=== PATIENT | female | born 1945 | race Caucasian/White ===

== ENCOUNTER → 2016-11-20 10:05 | Outpatient (CLI) | payer BC ==
[2016-04-01 13:00] VITALS: BMI 32.5
[~2016-11-20 10:05] MED LIST: AVAPRO150 MG PO; BAYER CHEWABLE81 MG PO; BIAXIN250 MG; COREG 3.1253.125 MG PO; COREG6.25 MG PO; COUMADIN5 MG PO; FERROUS SULFAT325 MG PO; ISOSORBIDE DINI30 MG OR; LASIX20 MG PO; LEVAQUIN500 MG PO; MULTI-DAY VITAM1 TAB PO; PRAVACHOL20 MG PO; PRAVACHOL40 MG PO; PRAVASTATIN SOD10 MG PO; PROTONIX40 MG PO; ULTRAM50 MG PO; UNITHROID88 MCG PO; XARELTO15 MG PO
[2016-11-20 10:42] LABS: BASOPHILS 0.4 % (0-2); EOSINOPHILS 2.1 % (0-7); HEMATOCRIT 39.2 % (36.0-48.0); HEMOGLOBIN 12.7 g/dL (12-16); IMMATURE GRANULOCYTES 0.2 % (0-5); LYMPHOCYTES 33.8 % (15-50); MCH 31.2 pg (26.0-34.0); MCHC 32.4 g/dL (31.0-37.0); MCV 96.3 fL (80.0-100.0); MEAN PLATELET VOLUME 11.1 fL (7.4-10.4); MONOCYTES 17.4 % (2-11); NEUTROPHILS 46.1 % (40-80); PLATELET COUNT 187 10x3/uL (130-400); RBC 4.07 10x6/uL (4.00-5.40); RDW 12.8 % (11.5-14.5); WBC 5.2 10x3/uL (4.8-10.8)
[2016-11-20 11:11] LABS: ALBUMIN 3.6 g/dL (3.4-5.0); BILIRUBIN - DIRECT 0.13 mg/dL (0.00-0.30); BILIRUBIN - INDIRECT 0.63 mg/dL (0.00-1.00); BILIRUBIN - TOTAL 0.76 mg/dL (0.2-1.3); PROTEIN - SERUM 7.4 g/dL (6.4-8.2)
== END | disposition home or self-care (01) ==
LOC: D.LAB 10:05
PROVIDERS: Surgery
DX: Z85.038 Personal history of other malignant neoplasm of large intestine (principal)

== ENCOUNTER → 2017-02-26 09:56 | Outpatient (CLI) | payer BC ==
[2016-04-01 13:00] VITALS: BMI 32.5
[2017-02-26 10:29] LABS: BASOPHILS 0.2 % (0-2); HEMATOCRIT 38.5 % (36.0-48.0); HEMOGLOBIN 12.7 g/dL (12-16); LYMPHOCYTES 36.9 % (15-50); MCH 32.1 pg (26.0-34.0); MCV 97.2 fL (80.0-100.0); MEAN PLATELET VOLUME 11.2 fL (7.4-10.4); NEUTROPHILS 45.9 % (40-80); PLATELET COUNT 173 10x3/uL (130-400); RBC 3.96 10x6/uL (4.00-5.40); RDW 11.9 % (11.5-14.5); WBC 4.9 10x3/uL (4.8-10.8)
[2017-02-26 10:48] LABS: ALBUMIN 3.6 g/dL (3.4-5.0); BILIRUBIN - TOTAL 0.39 mg/dL (0.2-1.3); CALCIUM 9.2 mg/dL (8.5-10.1); CARBON DIOXIDE 29.3 mmol/L (21.0-32.0); CREATININE - SERUM 1.2 mg/dL (0.6-1.3); POTASSIUM - SERUM 4.3 mmol/L (3.5-5.1); PROTEIN - SERUM 7.4 g/dL (6.4-8.2)
== END | disposition home or self-care (01) ==
LOC: D.LAB 09:56
PROVIDERS: Surgery
DX: Z85.038 Personal history of other malignant neoplasm of large intestine (principal)

== ENCOUNTER → 2017-06-18 08:53 | Outpatient (CLI) | payer BC ==
[2016-04-01 13:00] VITALS: BMI 32.5
[2017-06-18 10:10] LABS: ALBUMIN 3.6 g/dL (3.4-5.0); ANION GAP 14.8 mmol/L (8-16); BILIRUBIN - TOTAL 0.44 mg/dL (0.2-1.3); CARBON DIOXIDE 26.3 mmol/L (21.0-32.0); CREATININE - SERUM 2.1 mg/dL (0.6-1.3); POTASSIUM - SERUM 5.1 mmol/L (3.5-5.1); PROTEIN - SERUM 7.5 g/dL (6.4-8.2)
[2017-06-18 10:29] LABS: BASOPHILS 0 % (0-2); EOSINOPHILS 2.6 % (0-7); HEMATOCRIT 38.3 % (36.0-48.0); HEMOGLOBIN 12.4 g/dL (12-16); IMMATURE GRANULOCYTES 0.3 % (0-5); LYMPHOCYTES 26.5 % (15-50); MCH 31.6 pg (26.0-34.0); MCHC 32.4 g/dL (31.0-37.0); MCV 97.7 fL (80.0-100.0); MEAN PLATELET VOLUME 11.6 fL (7.4-10.4); MONOCYTES 22.1 % (2-11); NEUTROPHILS 48.5 % (40-80); RBC 3.92 10x6/uL (4.00-5.40); RDW 13.2 % (11.5-14.5); WBC 3.4 10x3/uL (4.8-10.8)
[2017-06-18 10:30] LABS: PLATELET COUNT 136 10x3/uL (130-400)
== END | disposition home or self-care (01) ==
LOC: D.CT 06-09 09:30 → D.LAB 06-09 10:00 → D.CT 08:53
PROVIDERS: Surgery
DX: Z85.038 Personal history of other malignant neoplasm of large intestine (principal)

== ENCOUNTER 2017-10-08 11:42 | Outpatient (CLI) | payer BC ==
[~2017-10-08] VITALS: Ht 144.8 cm; Wt 67.3 kg
--- NOTE | ~2017-10-08 | HEMODYNAMI ---
PATIENT:YASSINE العلي MEDICAL RECORD: [id number] : 47 LOCATION:[facility] ADMISSION DATE: 10/08/17 Generatedon:10/08/201715:21 Patient name: YASSINE العلي Patient #: [id number] SSN: DO B: 1945 Date of study: 10/08/2017 Page: Of Hemodynamic Procedure Report Patient Data Patient Demographics Procedure consent was obtained First Name: YASSINE Gender: Female Last Name: SEVERIANO : 1945 [facility] Initial: A Age: 72 year(s) Patient #: [id number] Race: Unknown Additional ID: [id number] Contact details Address: [address] [place] [address] State: [place] City: [place] Zip code: [address] Past Medical History Allergies Allergen Reaction Date Comments Reported Other allergy 04/01/2016 codeine,ibuprofen Admission Admission Data Admission Date: 10/08/2017 Admission Time: 11:42 Procedure Procedure Types Cath Procedure Diagnostic Procedure LHC LHC w/Coronaries w/Grafts Sedation Charges Moderate Sedation up to 30 minutes Peripheral Cath Diagnostic Procedure Cath Peripheral Aqpqy-Fdbbzld-Ujs-Off Procedure Description Procedure Date Procedure Date: 10/08/2017 Procedure Start Time: 14:52 Procedure End Time: 15:20 Procedure Staff Name Function Rishi Howard MD Performing Physician Lashon Gilbert RT Monitor Joe Yousif RN Nurse Robles Cordoba RT Scrub Procedure Data Cath Procedure Fluoroscopy Diagnostic fluoroscopy Total fluoroscopy Time: 7.3 time: 7.3 min min Diagnostic fluoroscopy Total fluoroscopy dose: 698 dose: 698 mGy mGy Contrast Material Contrast Material Type Amount (ml) Isovue 300 163 Entry Location Entry Primary Successful Side Size Upsize Upsize Entry Closure Succes sful Closure Location (Fr) 1 (Fr) 2 (Fr) Remarks Device Remarks Femoral Right 5 Fr Exoseal artery Estimated blood loss: 5 ml Diagnostic catheters Device Type Used For End Catheter Placement MULTIPACK JL 4.0 5Fr Left Coronary catheter Angiography MULTIPACK 3DRC 5Fr Right Coronary catheter Angiography DIAGNOSTIC AR MOD 5Fr Multi-vessel Catheter ([id number]) Angiography DIAGNOSTIC IMT 5Fr Multi-vessel Catheter ([id number]) Angiography MULTIPACK Pigtail 5 Fr LV Angiography catheter Procedure Complications No complications Procedure Medications Medication Administration Route Dosage Oxygen NC 2 l/min Lidocaine 2% added to field 20 Heparin Flush Bag added to field 2 bags (1000units/500ml NS) 0.9% NaCl I.V. 100 ml/hr Versed I.V. 1 mg Fentanyl I.V. 50 mcg Versed I.V. 1 mg Fentanyl I.V. 50 mcg Versed I.V. 1 mg Fentanyl I.V. 50 mcg Versed I.V. 1 mg Fentanyl I.V. 50 mcg Hemodynamics Rest Heart Rate: 74 (bpm) Pressure Samples Time Site Value (mmHg) Purpose Heart Use Rate(bpm) 15:12 LV 148/8,17 Snapshot 84 15:13 AO 155/66(105) Pullback 82 15:13 LV 158/8,25 Pullback 82 Gradients Valve Time Site 1 Site 2 Mean SEP/DFP Peak To Heart Use (mmHg) (sec/min) Peak Rate (mmHg) (bpm) Aortic 15:13 LV AO 7 18 3 82 158/8,25 155/66(105) Calculations Valve P-P Mean Valve Index Valve Source Name Gradient Area Flow (cm2) Aortic 3 7 3 7 Snapshots Pre Cath Intra NCS Post Cath Vital Signs Time Heart Resp SPO2 etCO2 NIBP (mmHg) Rhythm Pain Sedation Rate (ipm) (%) (mmHg) Status Level (bpm) 14:40:09 85 30 97 0 184/103(140) NSR 0 (11) 10(A) , No pain 14:44:27 79 29 96 22.4 148/78(104) NSR 0 (11) 10(A) , No pain 14:48:47 75 15 94 0 138/68(100) NSR 0 (11) 10(A) , No pain 14:53:09 76 24 97 0 147/70(109) NSR 0 (11) 9(A) , No pain 14:57:33 83 15 98 0 143/68(112) NSR 0 (11) 9(A) , No pain 15:01:55 78 16 94 0 133/60(102) NSR 0 (11) 9(A) , No pain 15:06:11 75 15 97 0 131/64(99) NSR 0 (11) 9(A) , No pain 15:10:21 77 12 98 8.9 135/65(105) NSR 0 (11) 9(A) , No pain 15:14:27 77 14 100 10.4 134/69(103) NSR 0 (11) 9(A) , No pain 15:19:18 81 13 100 26.1 148/68(103) NSR 0 (11) 10(A) , No pain Medications Time Medication Route Dose Verified Delivered Reason Notes Effe ctiveness by by 14:46:48 Oxygen NC 2 Rishi Buffie used for l/min Lee Yousif RN procedure 14:46:56 Lidocaine 2% added 20ml Rishi Rishi for local to vial Lee Howard MD anesthetic field 14:47:01 Heparin Flush added 2 Rishi Rishi used for Bag to bags Lee Howard MD procedure (1000units/500ml field NS) 14:47:10 0.9% NaCl I.V. 100 Rishi Buffie Per ml/hr Lee Yousif RN physician 14:47:16 Versed I.V. 1 mg Rishi Buffie for Lee Yousif RN sedation 14:47:21 Fentanyl I.V. 50 Rishi Buffie for mcg Lee Yousif RN sedation 14:53:30 Versed I.V. 1 mg Rishi Buffie for Lee Yousif RN sedation 14:53:34 Fentanyl I.V. 50 Rishi Buffie for delia Yousif RN sedation 15:00:28 Versed I.V. 1 mg Rishi Buffie for Lee Yousif RN sedation 15:00:32 Fentanyl I.V. 50 Rishi Buffie for mcg Lee Yousif RN sedation 15:13:41 Versed I.V. 1 mg Rishi Buffie for Lee Yousif RN sedation 15:13:45 Fentanyl I.V. 50 Rishi Buffie for mcg Lee Yousif RN sedation Procedure Log Time Note 13:50:39 Robles Cordoba RT(R) sent for patient. Start room use. 14:22:40 Time tracking: Regular hours (M-F 7:00 - 5:00) 14:22:44 Plan of Care:Hemodynamics will remain stable., Cardiac rhythm will remain stable., Comfort level will be maintained., Respiratory function will remain adequate., Patient/ family verbilizes understanding of procedure., Procedure tolerated without complication., Recovers from procedure without complications.. 14:32:19 Patient received from Pre/Post Procedure Room to CCL 2 Alert and oriented. Tansferred to table in Supine position. 14:32:20 Warm blankets applied, and vicky hugger turned on for patient comfort. 14:32:20 Correct patient and procedure confirmed by team. 14:32:21 Signed procedure consent form obtained from patient. 14:32:22 ECG and BP/O2 sat monitors applied to patient. 14:39:00 Vital chart was started 14:41:45 Baseline sample Acquired. 14:41:50 Rhythm: sinus rhythm 14:41:51 Full Disclosure recording started 14:41:55 H&P Date Dictated: 10/08/2017 Within 30 days and on chart., H&P Addendum completed by physician on day of procedure. (MUST COMPLETE FOR ALL OUTPATIENTS). 14:41:57 Pre-procedure instructions explained to patient. 14:41:57 Pre-op teaching completed and patient verbalized understanding. 14:41:59 Family in waiting room. 14:42:00 Patient NPO since Midnight. 14:42:02 Is the patient allergic to Iodine/contrast media? No. 14:42:03 Was the patient premedicated? No 14:42:05 Is patient on blood thinner?Yes 14:42:30 patient states she discontinued Coumadin 10/03/17 14:42:35 Patient diabetic? No. 14:42:37 Previous problem with sedation/anesthesia? No ? 14:42:39 Snore? Yes 14:42:40 Sleep apnea? No 14:42:40 Deviated septum? No 14:42:41 Opens mouth fully? Yes 14:42:42 Sticks out tongue? Yes 14:42:44 Airway obstruction? No ? 14:42:48 Dentures? Yes out 14:42:51 Pre procedure: right dorsailis pedis pulse 2+ Normal; easily identifiable; not easily obliterated 14:42:58 Pre procedure: left dorsailis pedis pulse 2+ Normal; easily identifiable; not easily obliterated 14:43:01 Patient pain scale 0/10 ?. 14:43:15 IV patent on arrival in left forearm with 0.9% NaCl at KVO. 14:43:18 Lab results completed and on chart. 14:43:20 Alarms reviewed by R. N. 14:43:21 Sharps counted by scrub and verified by R.N. 14:43:26 Bilateral groins area was prepped with chlora-prep and draped in sterile fashion 14:: Physician arrived :: --------ALL STOP TIME OUT------ : Final Timeout: patient, procedure, and site verified with staff and physician. All members of the team are in agreement. 14:43:30 Bilateral groins site verified by team. 14:43:33 Physical assessment completed. ASA score P 2 - A patient with mild systemic disease as per Rishi Howard MD. 14:43:37 Sedation plan: IV Moderate Sedation Medication:Versed, Fentanyl 14:46:48 Oxygen 2 l/min NC was administered by Joe Yousif RN; used for procedure; 14:46:56 Lidocaine 2% 20ml vial added to field was administered by Rishi Howard MD; for local anesthetic; 14:47:01 Heparin Flush Bag (1000units/500ml NS) 2 bags added to field was administered by Rishi Howard MD; used for procedure; 14:47:10 0.9% NaCl 100 ml/hr I.V. was administered by Joe Yousif RN; Per physician; 14:47:16 Versed 1 mg I.V. was administered by Joe Yousif RN; for sedation; 14:47:21 Fentanyl 50 mcg I.V. was administered by Joe Yousif RN; for sedation; 14:51:53 Procedure started. 14:52:11 Local anesthetic to right femoral artery with Lidocaine 2% by Rishi Howard MD.INITIAL ACCESS ONLY 14:52:26 Use device set Femoral Dx 14:52:27 ACIST Syringe (62555) opened to sterile field. 14:52:28 Bag Decanter (2002) opened to sterile field. 14:52:28 Medline Cath Pack ([id number]) opened to sterile field. 14:52:29 DIAGNOSTIC WIRE .035 260cm J wire (044211) opened to sterile field. 14:52:30 ACIST Hand Control (43588) opened to sterile field. 14:52:31 ACIST Manifold (91362) opened to sterile field. 14:52:31 DIAGNOSTIC Multipack 5Fr catheter set ([id number]) opened to sterile field. 14:52:32 Tegaderm 4 x 4 (1626W) opened to sterile field. 14:52:33 SHEATH Prelude 5Fr 0.035 (KXK-3A-88-035) opened to sterile field. 14:53:28 Zero performed for pressure channel P1 14:53:30 Versed 1 mg I.V. was administered by Joe Yousif RN; for sedation; 14:53:34 Fentanyl 50 mcg I.V. was administered by Joe Yousif RN; for sedation; 14:53:34 Zero performed for pressure channel P1 14:53:41 Zero performed for pressure channel P1 14:53:48 Zero performed for pressure channel P1 14:54:02 Zero performed for pressure channel P1 14:54:08 Zero performed for pressure channel P1 14:54:17 Zero performed for pressure channel P1 14:54:26 Zero performed for pressure channel P1 14:54:57 Zero performed for pressure channel P1 14:55:04 Zero performed for pressure channel P1 14:55:32 A 5 Fr sheath was inserted into the Right Femoral artery 14:55:41 A MULTIPACK JL 4.0 5Fr catheter was advanced over the wire and used for Left Coronary Angiography. 14:55:44 LCA angiography performed. 14:55:47 Injector settings: Ml/sec: 3, Volume: 6, 14:56:56 Catheter removed. 14:57:02 A MULTIPACK 3DRC 5Fr catheter was advanced over the wire and used for Right Coronary Angiography. 14:58:05 RCA angiography performed. 14:58:08 Injector settings: Ml/sec: 3, Volume: 6, 14:58:31 Catheter removed. 15:00:10 A DIAGNOSTIC AR MOD 5Fr Catheter (744800P) was advanced over the wire and used for Multi-vessel Angiography. 15:00:17 SVG to RCA angiography performed. 15:00:28 Versed 1 mg I.V. was administered by Joe Yousif RN; for sedation; 15:00:29 SVG to Circ angiography performed. 15:00:32 Fentanyl 50 mcg I.V. was administered by Joe Yousif RN; for sedation; 15:02:52 Catheter removed. 15:03:04 A DIAGNOSTIC IMT 5Fr Catheter ([id number]) was advanced over the wire and used for Multi-vessel Angiography. 15:04:09 BOSS angiography performed. 15:04:13 Injector settings: Ml/sec: 3, Volume: 6, 15:04:49 GLIDE WIRE ANGLE 260cm ([id number]) opened to sterile field. 15:09:40 TORQUE DEVICE PLASTIC .038 ( TD01) opened to sterile field. 15:11:44 Catheter removed. 15:11:49 A MULTIPACK Pigtail 5 Fr catheter was advanced over the wire and used for LV Angiography. 15:12:09 LV hemodynamics recorded. 15:12:11 LV gram done using BUSBY 15:12:13 Injector settings: Ml/sec: 5, Volume: 15, 15:12:53 EF : 35 % 15:13:21 Abdominal angiogram w/ runoff was performed. 15:13:41 Versed 1 mg I.V. was administered by Joe Yousif RN; for sedation; 15:13:45 Fentanyl 50 mcg I.V. was administered by Joe Yousif RN; for sedation; 15:16:03 EXOSEAL 5Fr (EX500) opened to sterile field. 15:16:23 Catheter removed. 15:17:13 Sheath removed intact; hemostasis achieved with Exoseal to the Right Femoral artery. 15:17:27 Procedure ended.(Physican Out) 15:18:15 Fluoroscopy time 07.30 minutes. 15:18:20 Flurop Dose total: 698 15:18:20 Fluoroscopy dose: 698 mGy 15:18:34 Contrast amount:Isovue 300 163ml. 15:18:36 Sharps counted by scrub and verified by R.N. 15:18:43 Insertion/operative site no bleeding no hematoma. 15:18:46 Post-op/insertion site Right Femoral artery dressed using a 4 x 4 and Tegaderm. 15:18:49 Post right femoral artery:stable 15:18:51 Post Procedure Pulses reassessed and unchanged 15:18:53 Post procedure rhythm: unchanged. 15:18:56 Estimated blood loss: 5 ml 15:18:59 Post procedure instruction explained to patient.Patient verbalizes understanding. 15:18:59 Patient needs reinforcement of post procedure teaching. 15:19:30 Procedure type changed to Cath procedure, Diagnostic procedure, LHC, LHC w/Coronaries w/Grafts, Sedation Charges, Moderate Sedation up to 30 minutes, Peripheral Cath Diagnostic Procedure, Cath Peripheral, Djgsu-Tqibrfb-Exn-Off 15:19:31 Procedure and supply charges have been captured, reviewed, submitted and are correct. 15:19:36 Procedure Complication : No complications 15:19:38 Vital chart was stopped 15:19:39 See physician's report for complete and final results. 15:20:04 Report given to Pre/Post Procedure Room. 15:20:07 Patient transfered to Pre/Post Procedure Room with Stretcher. 15:20:09 Procedure ended. 15:20:09 Full Disclosure recording stopped 15:20:13 End room use (Document Last) Device Usage Item Name Manufacture Quantity Catalog Number Hospital Part Current M inimal Lot# / Charge Number Stock Stock Serial# Code ACIST Syringe Acist 1 34508 339895 812043 809655 2 0 (50767) [employer] Bag Decanter Microtek 1 2001S 063331 55422 358509 5 () Medical Inc. Medline Cath Cardinal 1 [id number] 289908 84697 840452 5 Pack Health ([id number]) DIAGNOSTIC WIRE [facility] [place] 1 750371 302419 992197 476074 3 0 .035 260cm J wire (609872) ACIST Hand Acist 1 68217 430744 613202 307618 5 Control (10859) [employer] ACIST Manifold Acist 1 95893 017815 009641 554869 5 (40187) [employer] DIAGNOSTIC Cardinal 1 [id number] 150819 63077 462818 3 0 Multipack 5Fr Health catheter set (MH1987) Tegaderm 4 x 4 3M 1 1626W 662180 177830 655504 5 (1626W) SHEATH Prelude Merit 1 [id number]-2I-83-035 489636 180300 298217 5 5Fr 0.035 Medical (BLM-7T-14-035) MULTIPACK JL Cardinal 1 106276 5 4.0 5Fr Health catheter MULTIPACK 3DRC Cardinal 1 989306 5 5Fr catheter Health DIAGNOSTIC AR Cardinal 1 [id number] 336417 546287 330323 1 5 MOD 5Fr Health Catheter (908014F) DIAGNOSTIC IMT [place] 1 [id number] 163620 298541 19495 5 5Fr Catheter Scientific ([id number]) GLIDE WIRE Terumo 1 [id number] 554386 295617 647881 5 ANGLE 260cm (FQ6234) TORQUE DEVICE [place] 1 TD01 722814 133603 956275 5 PLASTIC .038 ( Scientific TD01) MULTIPACK Cardinal 1 859219 5 Pigtail 5 Fr Health catheter EXOSEAL 5Fr Cardinal 1 EX500 189655 182250 993130 1 0 (EX500) Health Signature Audit [place] Stage Time Signature Unsigned Intra-Procedure 10/08/2017 Lashon Gilbert 3:21:29 PM RT(R) Signatures Monitor : Lashon Gilbert RT Signature : Date : Time : [facility] [address] [place] [address]
[2017-10-08 12:09] VITALS: BP 91/67; Ht 144.8 cm; Wt 67.3 kg
[2017-10-08 12:24] LABS: ANION GAP 11.8 mmol/L (8-16); CALCIUM 9.7 mg/dL (8.5-10.1); CARBON DIOXIDE 30.2 mmol/L (21.0-32.0); CREATININE - SERUM 1.2 mg/dL (0.6-1.3)
[2017-10-08 12:29] LABS: BASOPHILS 0.3 % (0-2); EOSINOPHILS 1.4 % (0-7); HEMATOCRIT 40.7 % (36.0-48.0); HEMOGLOBIN 13.3 g/dL (12-16); IMMATURE GRANULOCYTES 0.2 % (0-5); LYMPHOCYTES 40.2 % (15-50); MCH 31.7 pg (26.0-34.0); MCHC 32.7 g/dL (31.0-37.0); MCV 97.1 fL (80.0-100.0); MEAN PLATELET VOLUME 11.3 fL (7.4-10.4); MONOCYTES 14.9 % (2-11); PLATELET COUNT 180 10x3/uL (130-400); RBC 4.19 10x6/uL (4.00-5.40); RDW 12.1 % (11.5-14.5); WBC 5.8 10x3/uL (4.8-10.8)
[2017-10-08 12:57] LABS: INR 0.98 (0.85-1.17); PROTIME 12.6 SECONDS (11.6-15.0)
== END 2017-10-08 18:05 | disposition home or self-care (01) ==
LOC: D.CATH 11:42
PROVIDERS: Internal Medicine Cardiovascular Disease
DX: I25.110 Atherosclerotic heart disease of native coronary artery with unstable angina pectoris (principal); I70.202 Unspecified atherosclerosis of native arteries of extremities, left leg; Z01.812 Encounter for preprocedural laboratory examination; Z95.1 Presence of aortocoronary bypass graft

== ENCOUNTER → 2018-05-27 17:18 | Outpatient (CLI) | payer BC ==
[2017-10-08 12:09] VITALS: BMI 32.1
== END | disposition home or self-care (01) ==
LOC: D.MAMMO 09:00
DX: Z12.31 Encounter for screening mammogram for malignant neoplasm of breast (principal)

== ENCOUNTER 2018-06-24 19:00 | Outpatient (CLI) | payer BC ==
[2017-10-08 12:09] VITALS: BMI 32.1
== END 2018-06-24 23:59 | disposition home or self-care (01) ==
LOC: D.MAMMO 19:00
PROVIDERS: ATTEND Family Medicine
DX: R92.8 Other abnormal and inconclusive findings on diagnostic imaging of breast (principal)

== ENCOUNTER → 2018-07-29 09:15 | Outpatient (CLI) | payer BC ==
[2017-10-08 12:09] VITALS: BMI 32.1
== END | disposition home or self-care (01) ==
LOC: D.HCCARDIO 09:00
PROVIDERS: ATTEND Internal Medicine Cardiovascular Disease
DX: I25.10 Atherosclerotic heart disease of native coronary artery without angina pectoris (principal)

== ENCOUNTER → 2019-07-07 07:57 | Outpatient (CLI) | payer BC ==
[2017-10-08 12:09] VITALS: BMI 32.1
== END | disposition home or self-care (01) ==
LOC: D.HCCECHO 07:57
PROVIDERS: ATTEND Internal Medicine Cardiovascular Disease
DX: I25.10 Atherosclerotic heart disease of native coronary artery without angina pectoris (principal)